=== PATIENT | female | born 1975 | race African-American/Black ===

== ENCOUNTER 2021-10-29 18:38 | Emergency (ER) | payer BC, OTHER ==
[2021-10-29 18:53] VITALS: TEMP 98.2; BMI 29.0
[2021-10-29 21:07] LABS: BASO % 0.7 % (0-2.0); EOS % 1.5 % (0-4.5); HEMATOCRIT 30.8 % (32.4-45.2); HEMOGLOBIN 10.1 GM/dL (10.7-15.3); LYMPH % 22.3 % (8-40); MCH 26.1 pg (25.7-33.7); MCHC 32.8 g/dl (32.0-36.0); MEAN CELL VOLUME 79.6 fl (80-96); MEAN PLT VOLUME 8.6 fl (7.5-11.1); MONO % 7.2 % (3.8-10.2); NEUT % 68.3 % (42.8-82.8); PLATELET COUNT 270 10^3/uL (134-434); RBC 3.87 M/mm3 (3.60-5.2); RDW 16.9 % (11.6-15.6); WHITE BLOOD COUNT 6.6 K/mm3 (4.0-10.0)
[2021-10-29 21:18] LABS: INR 1.03 (0.83-1.09); PROTHROMBIN TIME (PATIENT) 11.9 SEC (9.7-13.0)
[2021-10-29 21:20] LABS: ACTIVATED PTT 30.2 SECONDS (25.2-36.5)
[2021-10-29 21:42] LABS: CALCIUM 8.7 mg/dL (8.5-10.1)
[2021-10-29 21:43] LABS: ALBUMIN 3.6 g/dl (3.4-5.0); BLOOD UREA NITROGEN 12.2 mg/dL (7-18); MAGNESIUM 2.2 mg/dL (1.8-2.4)
[2021-10-29 21:46] LABS: CREATININE 1.1 mg/dL (0.55-1.3)
[2021-10-29 21:48] LABS: BILIRUBIN,TOTAL 0.4 mg/dL (0.2-1); TOT PROT 7.2 g/dl (6.4-8.2)
[2021-10-29 22:16] VITALS: BP 138/84; PULSE 84
== END 2021-10-29 22:16 | disposition home or self-care (01) ==
LOC: JER 18:38
DX: R07.89 Other chest pain (principal)
CPT/HCPCS: 36415; 71045-TC-FY; 80053; 83735; 84484; 85025; 85610; 85730; 93005; 93010; 99284-25; C9803; U0003; U0005